=== PATIENT | male | born 1970 | race Caucasian/White ===

== ENCOUNTER 2025-03-17 12:06 | Day surgery (SDC) | payer MEDICAID ==
[2025-03-17] VITALS (12 sets, daily range): BP systolic 93–119; BP diastolic 50–80; PULSE 47–79; RESP 9–16; TEMP 97.5; O2SAT 95–100
[~2025-03-17] VITALS: Ht 182.9 cm; Wt 89.1 kg
[2025-03-17] MEDS: ceFAZolin 2gm/dext,iso 50mL 50 ML IV ONE (05:30)
[~2025-03-17 12:06] MED LIST: BUPR-559 PO; CLOP75TA34 PO; GABA-1405 PO; INDLA80C PO; LORA-269 PO; LOSA100T58 PO; METF-438 PO; SEMA1PEN3 SQ; TAMS-55 PO; TRAM50TA2 PO; TRAZ-251 PO
[2025-03-17] MEDS: ringers solution, lacted 1,000 ML IV SCH ×2 (12:52→13:55)
[2025-03-17] MEDS ORDERED: bacitracin 15gm ointment TP ONE (12:53)
[2025-03-17] MEDS ORDERED: BUPIVAcaine/PF 2.5mg/ml (0.25%) 10ml vial ONE (12:53)
[2025-03-17] MEDS ORDERED: fentaNYL/PF 50MCG/1 ML 2ML syringe ONE (13:14)
[2025-03-17] MEDS ORDERED: midazolam 1 mg/ML 2ml injection ONE (13:14)
[2025-03-17] MEDS ORDERED: propofol inj 20 ML IV ONE (13:15)
[2025-03-17] MEDS ORDERED: LIDOcaine 1%/PF 5ML 10 MG/ML VIAL ONE (13:15)
[2025-03-17] MEDS ORDERED: morphine 4 MG/ML inj SYRINge IV PRN (13:55)
[2025-03-17] MEDS ORDERED: labetalol 20mg/4ml (5mg/ml) syringe IV PRN (13:55)
[2025-03-17] MEDS ORDERED: ondansetron/PF 4mg/2ml inj IV PRN (13:55)
[2025-03-17] MEDS ORDERED: meperidine/PF 25mg/ml syringe IV PRN ×3 (13:55)
[2025-03-17] MEDS ORDERED: enalaprilat 1.25mg/ml 2ml vial IV PRN (13:55)
--- NOTE | 2025-03-17 14:00 | ANESTHESIA RECORDS ---
Nerve Block Providers to CC ~ Diagnosis: Nerve Block requested by: JOSEPH DESHPANDE DPCari Neuraxial/Peripheral Nerve Block requested for Post-operative analgesia by Physician above DIAGNOSIS: Post-operative pain. (Body Area) Shoulder: [ ] Arm: [ ] Hand: [ ] Hip: [ ] Knee: [ ] Ankle: [ ] Foot: [____Left ] Leg: [ ] Abdomen: [ ] Other: [ ] Post-operative pain expected to be/is inadequately managed by oral or IV medicines. Regional anesthetic expected to facilitate rehabilitation and/or discharge from facility. Other:[ ] Procedure Performed: Ankle Superficial Peroneal: Left Ankle Deep Peroneal: Left Ankle Sural & Sapenous Nerve: Left Time out Done?: Yes Time of Time out: 13:22 Procedure Details: PROCEDURE DETAILS: Risks, benefits and alternatives explained Informed consent obtained, and patient wishes to proceed Conscious sedation with indicated monitors Patient positioned, pertinent anatomy defined, sterile technique used Needle used: [ ] 3 1/8 inch Stimuplex Ultra 22ga [ ] 4 inch Stimuplex Ultra 20ga [ ] 6 inch Stimuplex Ultra 20ga [ ] 6 inch, Quikbloc over the needle catheter set 20ga [ ] 4 inch Quikbloc over the needle catheter set 20ga [x ]Other: [__# 25 1.5" needle ] Loss of twitch @ [ ]mA [ ] Single Injection [ ] Catheter Ultrasound Guidance Used: [ ] Yes [ ] No Attempts:[ ] Medicines injected: [ ]Clonidine Amt:[ ] [ x ]Dexamethasone Amt:[___2 mgs ] [x ]Ropivacaine Amt:[____0.5% 15 cc ] [ ]Bupivacaine Amt:[ ] [ ]Lidocaine Amt:[ ] [ ]Exparel 1.33%:[ ] [ ]Epinephrine Amt[ ] [ ]Other: [ ] Intermittent aspiration during local anesthetic administration No symptoms of intraneural or intravenous injection Patient tolerated procedure well Comments Left Ankle Block: Pts ankle and foot prepped with Betadine, Local anesthetic mixture is injected in divided doses to block the 1) post Tibial never behind Medial malleolus, 3) Superfical saphenous nerves in front of ankle are blocked by circumferential subcutaneous injection of 1015 mL of local anesthetic along with a line just proximal to the malleoli and anterior from the Achilles tendon medially to laterally , 4) Deep peroneal nerve was blocked with 5 cc of local anesthetic mixture deep to extensor retinaculum just lateral to the extensor hallucis longus tendon. TOMMY HASKINS MD Mar 17, 2025 14:00
[2025-03-17] MEDS ORDERED: ROPIVAcaine 0.5% (5mg/ml) 30ml vial ONE (14:02)
--- NOTE | 2025-03-17 14:49 | OPERATIVE REPORT ---
DATE OF SURGERY: 03/17/2025 DICTATING PHYSICIAN: Luis Herrera MD PREOPERATIVE DIAGNOSIS: Left hallux deformity with chronic infection. POSTOPERATIVE DIAGNOSIS: Left hallux deformity with chronic infection. PROCEDURE: Hallux amputation of the left foot. SURGEON: Luis Herrera MD CLINICAL EXERCISE PHYSIOLOGIST: None. ANESTHESIA: General anesthesia with ankle block. ANESTHESIOLOGIST: Dr. Bernal ESTIMATED BLOOD LOSS: None. COMPLICATIONS: None. IMPLANT USED: None. INDICATIONS: The patient presented to our office with the above-stated chief complaints. The patient states she has been unresponsive to conservative treatments at this point, thus surgical options were offered at this time along with all potential risks, complications, expected outcomes being fully explained to the patient's level of understanding. No guarantees were given. Clinical and radiographic findings do correlate well with the above diagnosis. DESCRIPTION OF PROCEDURE: The patient was brought to the operating room and placed on the table in the supine position. Upon administration of the general anesthesia, the left leg was scrubbed, prepped and draped in usual aseptic manner. Pneumatic calf tourniquet which had previously been applied, was now inflated to approximately 250 mmHg. A fishmouth incision was created overlying the base of the hallux on the left foot. The incision was carried full thickness down to bone. The hallux was disarticulated through the first MTP joint and resected and removed from the operative field. The area was inspection for remaining redundant infectious tissue, of which none was noted. All remaining tissue was noted to be very healthy in appearance. The wound was then flushed with copious amounts of sterile IrriSept solution. Correction of the above-stated deformities were assessed at this time and noted to be excellent. All wounds were flushed with copious amounts of sterile saline. The skin incisions were reapproximated utilizing 3-0 nylon. All wounds were covered with sterile triple lidocaine ointment, sterile Adaptic, 4 x 4's, sterile Webril, Wilfrid bandage formation of moderate compression dressing. Sedation was continued. Tourniquet was deflated with immediate hyperglycemia to the left foot. The patient was taken to PACU for postoperative monitoring. All vitals were stable and neurovascular status intact. The patient was given crutches and Cam boot and follow up with me in the office in approximately 1-2 weeks. Luis Herrera MD TID: [id number] RECEIPT: [id number] KAROLINE/MAGDALENO
== END 2025-03-17 17:05 | disposition home or self-care (01) ==
LOC: PAS 12:06
PROVIDERS: ATTEND Podiatrist Foot & Ankle Surgery
DX: M20.5X2 Other deformities of toe(s) (acquired), left foot (principal); M79.672 Pain in left foot; G89.18 Other acute postprocedural pain; I10 Essential (primary) hypertension; E11.9 Type 2 diabetes mellitus without complications; F32.A Depression, unspecified; F17.290 Nicotine dependence, other tobacco product, uncomplicated; Z86.73 Personal history of transient ischemic attack (TIA), and cerebral infarction without residual deficits; Z79.82 Long term (current) use of aspirin; Z79.891 Long term (current) use of opiate analgesic; Z79.899 Other long term (current) drug therapy; Z98.890 Other specified postprocedural states; Z88.6 Allergy status to analgesic agent; Z82.3 Family history of stroke
CPT/HCPCS: 28820; 64450; 82948; A6222; A6223; J2250; J2704; J2795; J3010; J3490; J7030; J7120; Z7506; Z7512; A4618; A6449; A7000